=== PATIENT | male | born 1990 | race African-American/Black ===

== ENCOUNTER 2016-10-07 07:13 | Emergency (ER) | payer OTHER ==
[~2016-10-07] VITALS: Ht 172.7 cm; Wt 69.9 kg
[~2016-10-07 07:13] MED LIST: CIPR500T94 PO; HYDR-79 PO
[2016-10-07 07:17] VITALS: BP 132/80
[2016-10-07] MEDS ORDERED: HYDR-971 PO (07:37)
[2016-10-07] MEDS ORDERED: PENI250T85 PO (07:37)
--- NOTE | 2016-10-07 07:37 | PHYS DOC ---
Past Medical History Past Medical History: No Pertinent History Past Surgical History: No Surgical History Alcohol Use: None Drug Use: None Adult General Chief Complaint Chief Complaint: DENTAL PROBLEM HPI HPI Patient is a 26 year old male complaining of pain in the right upper molar, he thinks it's his wisdom tooth. It started 2 days ago. It wasn't bothering him at all before then. He states the pain is "20" and has been keeping him up for 2 nights. It's killing him. He's never had a toothache like this before. He did have his wisdom teeth pulled on the left at the oral surgery here at [place]. No known allergies. Review of Systems Review of Systems Constitutional: Denies fever HENT: Denies nasal congestion or sore throat [] Allergies Allergies Allergies Coded Allergies Type Severity Reaction Last Updated Verified No Known Drug Allergies 12/04/14 No Physical Exam Physical Exam Constitutional: Well developed, well nourished, no acute distress, non-toxic appearance. Alert, mentating normally, no dyspnea, swallowing his secretions normally. HENT: Normocephalic, atraumatic, bilateral external ears normal, oropharynx moist, tongue normal. Right upper third molar is mostly erupted and appears to have a large cavity and possibly a fracture. There is no surrounding significant gingival infection, no pus drainage, no periapical abscess. The palate is not involved. Oropharynx is clear Eyes: conjunctiva normal, no discharge. [] Neck: Normal range of motion, no stridor. [] Neurologic: Alert and oriented X 3, normal motor function, normal sensory function, no focal deficits noted. [] Current Patient Data Vital Signs Vital Signs Date Time Temp Pulse Resp B/P (MAP) Pulse Ox O2 Delivery O2 Flow Rate FiO2 10/07/16 07:17 98.3 66 16 100 Room Air 98.3 EKG EKG [] Radiology/Procedures Radiology/Procedures [] Course & Med Decision Making Course & Med Decision Making Pertinent Labs and Imaging studies reviewed. (See chart for details) I emphasized the importance of dental/oral surgery follow-up immediately tomorrow. See instructions for plan. [] Dragon Disclaimer Dragon Disclaimer This electronic medical record was generated, in whole or in part, using a voice recognition dictation system. Departure Departure Impression: Primary Impression: Pain due to dental caries Disposition: HOME, SELF-CARE Condition: STABLE Referrals: RAJAN HARDY DDS ARSALAN CRISOSTOMO Jr DDS Patient Instructions: Dental Caries Additional Instructions: As we discussed, the penicillin and pain pills will help a little bit, but it's important that you see a oral surgeon to get this tooth taken care of. Call tomorrow morning. Hydrocodone is an opiate and can be addictive, it is strong. No driving while taking it. It will be sedating and constipating. Scripts Hydrocodone/Apap 5-325 (NORCO 5-325 TABLET) 1 Each Tablet 1-2 TAB PO Q4-6HRS for dental pain, #10 TAB Prov: CATALINO JOHN MD 10/07/16 Penicillin V Potassium (PENICILLIN V POTASSIUM) 250 Mg Tablet 250 MG PO QID for dental pain for 7 Days, #28 TAB 0 Refills Prov: CATALINO JOHN MD 10/07/16 CATALINO JOHN MD Oct 07, 2016 07:37
== END 2016-10-07 07:47 | disposition home or self-care (01) ==
LOC: ER 07:13
DX: K02.9 Dental caries, unspecified (principal)
CPT/HCPCS: 99283

== ENCOUNTER 2018-09-28 20:37 | Emergency (ER) | payer OTHER ==
[~2018-09-28] VITALS: Ht 172.7 cm; Wt 83.9 kg
[~2018-09-28 20:37] MED LIST changes: +HYDR-3164 PO; -HYDR-79 PO; +HYDROCODONE-IB1 EAC3 PO; +PENI250T85 PO
[2018-09-28 20:57] LABS: BASO # 0.1 x10^3/uL (0.0-0.2); BASO % 1 % (0-3); EOS # 0.1 x10^3/uL (0.0-0.7); EOS % 2 % (0-3); HEMATOCRIT 49.5 % (39.0-53.0); LYMPH # 2.8 x10^3/uL (1.0-4.8); LYMPH % 35 % (24-48); MEAN CORPUSCULAR HEMOGLOBIN 29 pg (25-35); MEAN CORPUSCULAR HGB CONC 34 g/dL (31-37); MEAN CORPUSCULAR VOLUME 84 fL (79-100); MONO # 0.7 x10^3/uL (0.0-1.1); MONO % 9 % (0-9); NEUT # 4.3 x10^3/uL (1.8-7.7); NEUT % 53 % (31-73); PLATELET COUNT 248 x10^3/uL (140-400); RED BLOOD COUNT 5.88 x10^6/uL (4.30-5.70); RED CELL DISTRIBUTION WIDTH 14.1 % (11.5-14.5)
[2018-09-28 21:07] LABS: CALCIUM 9.8 mg/dL (8.5-10.1); CREATININE 1.5 mg/dL (0.7-1.3); GFR 67.4; POTASSIUM 3.3 mmol/L (3.5-5.1)
[2018-09-28] MEDS ORDERED: KETOROLAC 15 MG/ML VIAL. IV ONE (21:15)
[2018-09-28] MEDS ORDERED: IV NORMAL SALINE 1000ML BAG 1,000 ML IV ONE ×2 (21:15→22:00)
[2018-09-28 21:18] LABS: BILIRUBIN,URINE NEGATIVE (NEG); CLARITY,URINE CLEAR; COLOR,URINE YELLOW; NITRITE,URINE NEGATIVE (NEG); PROTEIN,URINE NEGATIVE (NEG-TRACE); UROBILINOGEN,URINE 0.2 mg/dL (0.2 mg/dL)
[2018-09-28 21:22] LABS: BACTERIA,URINE 0 /HPF (0-FEW); RBC,URINE OCC /HPF (0-2); WBC,URINE OCC /HPF (0-4)
[2018-09-28 21:23] LABS: ALBUMIN 4.5 g/dL (3.4-5.0); ALBUMIN/GLOBULIN RATIO 1.1 (1.0-1.7); TOTAL BILIRUBIN 0.7 mg/dL (0.2-1.0); TOTAL PROTEIN 8.5 g/dL (6.4-8.2)
[2018-09-28 21:24] LABS: AMPHETAMINE/METHAMPHETAMINE NEG (NEG); BARBITURATES NEG (NEG); BENZODIAZEPINES NEG (NEG); CANNABINOIDS POS (NEG); COCAINE NEG (NEG); METHADONE NEG (NEG); OPIATES NEG (NEG); PHENCYCLIDINE NEG (NEG)
[2018-09-28 23:05] LABS: CALCIUM 8.6 mg/dL (8.5-10.1); CREATININE 1.4 mg/dL (0.7-1.3); POTASSIUM 3.6 mmol/L (3.5-5.1)
[2018-09-28 23:41] VITALS: BP 109/57
--- NOTE | 2018-09-29 01:08 | PHYS DOC ---
Past Medical History Past Medical History: No Pertinent History Past Surgical History: No Surgical History Alcohol Use: Occasionally Drug Use: Marijuana Adult General Chief Complaint Chief Complaint: CHEST PAIN HPI HPI Patient is a 28 year old M P/W CC OF BODY ACHES. WAS WORKING IN A [employer] A COUPLE DAYS AGO. HAVING RIGHT SIDE CHEST DISCOMFORT, ALSO FEELING BODY ACHES THROUGHOUT INCLUDING RIGHT [place] RIGHT LOWER BACK. JUST FEELING WEAK HAS BEEN DRINKING GATROADE BUT NOT HELPING VERY MUCH. Review of Systems Review of Systems Constitutional: Denies fever or chills [] Eyes: Denies change in visual acuity, redness, or eye pain [] HENT: Denies nasal congestion or sore throat [] Musculoskeletal: Denies back pain or joint pain [] Integument: Denies rash or skin lesions [] Neurologic: Denies headache, focal weakness or sensory changes [] Endocrine: Denies polyuria or polydipsia [] All other systems were reviewed and found to be within normal limits, except as documented in this note. Current Medications Current Medications Current Medications Medications (Trade) Dose Ordered Sig/Cami Start Time Stop Time Status Last Admin Dose Admin Ketorolac Tromethamine (Toradol 15mg Vial) 15 mg 1X ONCE 09/28/18 21:15 09/28/18 21:16 DC 09/28/18 21:07 15 MG Sodium Chloride 1,000 ml @ 1,000 mls/hr 1X ONCE 09/28/18 22:00 09/28/18 22:59 DC 09/28/18 21:51 1,000 MLS/HR Allergies Allergies Allergies Coded Allergies Type Severity Reaction Last Updated Verified No Known Drug Allergies 12/04/14 No Physical Exam Physical Exam Constitutional: Well developed, well nourished, no acute distress, non-toxic appearance. [] HENT: Normocephalic, atraumatic, bilateral external ears normal, oropharynx moist, no oral exudates, nose normal. [] Eyes: PERRLA, EOMI, conjunctiva normal, no discharge. [] Neck: Normal range of motion, no tenderness, supple, no stridor. [] Cardiovascular:Heart rate regular rhythm, no murmur [] Lungs & Thorax: Bilateral breath sounds clear to auscultation [] REPRODUCIBLE RIGHT CHEST WALL AND RIGHT POSTERIOR LOWER BACK PARASPINOUS TTP. Abdomen: Bowel sounds normal, soft, no tenderness, no masses, no pulsatile masses. [] Skin: Warm, dry, no erythema, no rash. [] Back: No tenderness, no CVA tenderness. [] Extremities: No tenderness, no cyanosis, no clubbing, ROM intact, no edema. [] Neurologic: Alert and oriented X 3, normal motor function, normal sensory function, no focal deficits noted. [] Psychologic: Affect normal, judgement normal, mood normal. [] Current Patient Data Vital Signs Vital Signs Date Time Temp Pulse Resp B/P (MAP) Pulse Ox O2 Delivery O2 Flow Rate FiO2 09/28/18 23:41 98.5 61 16 109/57 (74) 100 Room Air 98.5 Lab Values Laboratory Tests Test 09/28/18 20:50 09/28/18 21:10 09/28/18 22:48 White Blood Count 8.0 x10^3/uL (4.0-11.0) Red Blood Count 5.88 x10^6/uL (4.30-5.70) H Hemoglobin 17.0 g/dL (13.0-17.5) Hematocrit 49.5 % (39.0-53.0) Mean Corpuscular Volume 84 fL (79-100) Mean Corpuscular Hemoglobin 29 pg (25-35) Mean Corpuscular Hemoglobin Concent 34 g/dL (31-37) Red Cell Distribution Width 14.1 % (11.5-14.5) Platelet Count 248 x10^3/uL (140-400) Neutrophils (%) (Auto) 53 % (31-73) Lymphocytes (%) (Auto) 35 % (24-48) Monocytes (%) (Auto) 9 % (0-9) Eosinophils (%) (Auto) 2 % (0-3) Basophils (%) (Auto) 1 % (0-3) Neutrophils # (Auto) 4.3 x10^3/uL (1.8-7.7) Lymphocytes # (Auto) 2.8 x10^3/uL (1.0-4.8) Monocytes # (Auto) 0.7 x10^3/uL (0.0-1.1) Eosinophils # (Auto) 0.1 x10^3/uL (0.0-0.7) Basophils # (Auto) 0.1 x10^3/uL (0.0-0.2) Sodium Level 133 mmol/L (136-145) L 137 mmol/L (136-145) Potassium Level 3.3 mmol/L (3.5-5.1) L 3.6 mmol/L (3.5-5.1) Chloride Level 96 mmol/L (98-107) L 100 mmol/L (98-107) Carbon Dioxide Level 25 mmol/L (21-32) 28 mmol/L (21-32) Anion Gap 12 (6-14) 9 (6-14) Blood Urea Nitrogen 30 mg/dL (8-26) H 28 mg/dL (8-26) H Creatinine 1.5 mg/dL (0.7-1.3) H 1.4 mg/dL (0.7-1.3) H Estimated GFR (Cockcroft-Gault) 67.4 73.0 BUN/Creatinine Ratio 20 (6-20) Glucose Level 128 mg/dL (70-99) H 74 mg/dL (70-99) Calcium Level 9.8 mg/dL (8.5-10.1) 8.6 mg/dL (8.5-10.1) Total Bilirubin 0.7 mg/dL (0.2-1.0) Aspartate Amino Transferase (AST) 120 U/L (15-37) H Alanine Aminotransferase (ALT) 70 U/L (16-63) H Alkaline Phosphatase 107 U/L (46-116) Creatine Kinase 4597 U/L (39-308) H 3842 U/L (39-308) H Total Protein 8.5 g/dL (6.4-8.2) H Albumin 4.5 g/dL (3.4-5.0) Albumin/Globulin Ratio 1.1 (1.0-1.7) Lipase 123 U/L (73-393) Urine Collection Type Unknown Urine Color Yellow Urine Clarity Clear Urine pH 6.0 Urine Specific [place] 1.025 Urine Protein Negative mg/dL (NEG-TRACE) Urine Glucose (UA) Negative mg/dL (NEG) Urine Ketones (Stick) Negative mg/dL (NEG) Urine Blood Negative (NEG) Urine Nitrite Negative (NEG) Urine Bilirubin Negative (NEG) Urine Urobilinogen Dipstick 0.2 mg/dL (0.2 mg/dL) Urine Leukocyte Esterase Negative (NEG) Urine RBC Occ /HPF (0-2) Urine WBC Occ /HPF (0-4) Urine Bacteria 0 /HPF (0-FEW) Urine Mucus Mod /LPF Urine Opiates Screen Neg (NEG) Urine Methadone Screen Neg (NEG) Urine Barbiturates Neg (NEG) Urine Phencyclidine Screen Neg (NEG) Urine Amphetamine/Methamphetamine Neg (NEG) Urine Benzodiazepines Screen Neg (NEG) Urine Cocaine Screen Neg (NEG) Urine Cannabinoids Screen Pos (NEG) Urine Ethyl Alcohol Neg (NEG) Laboratory Tests 09/28/18 20:50 Laboratory Tests 09/28/18 20:50 09/28/18 22:48 EKG EKG []EKG NSR RATE 71 NO ACUTE ISCHEMIC CHANGES NOTED. Radiology/Procedures Radiology/Procedures [] Impressions: CXR NEGATIVE. Course & Med Decision Making Course & Med Decision Making Pertinent Labs and Imaging studies reviewed. 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 [employer] INITIALLY 4900 CR 1.5 GAVE TWO LITERS HE FELT A LOT BETTER URINATING WELL REPEAT <4000 DOWNTRENDING. I THINK HE IS OKAY TO GO HOME HE IS TAKING GOOD PO . Dragon Disclaimer Dragon Disclaimer This electronic medical record was generated, in whole or in part, using a voice recognition dictation system. Departure Departure Impression: Primary Impression: Rhabdomyolysis Disposition: HOME, SELF-CARE Condition: STABLE Patient Instructions: Mckennaolysis SARMAD VERA MD Sep 29, 2018 01:08
--- NOTE | 2018-09-29 06:28 | RAD ---
PORTABLE CHEST 1V Clinical Indication: Shortness of breath Comparison: None. Findings: The cardiomediastinal silhouette is normal. Lungs are clear. There is no pneumothorax. No pleural effusion is appreciated. No acute bone abnormality. IMPRESSION: No acute cardiopulmonary process. Electronically signed by: Tyrell Grijalva MD (09/29/2018 6:25 AM) [facility]
--- NOTE | 2018-09-29 07:24 | EKG ---
[facility] [address] [place] [address] Test Date: 2018-09-28 Test Time: 20:42:07 Pat Name: KRIS MERRITT Department: Room: Gender: M Leadership Development Instructor: : 1990 Requested By: SARMAD VERA Order Number: [id number] Reading MD: Measurements Intervals [place] Rate: 71 P: 42 TX: 156 QRS: 81 QRSD: 78 T: 56 QT: 346 QTc: 380 Interpretive Statements SINUS RHYTHM OTHERWISE NORMAL ECG RI6.01 Unconfirmed report No previous ECG available for comparison
== END 2018-09-28 23:41 | disposition home or self-care (01) ==
LOC: ER 20:37
DX: M62.82 Rhabdomyolysis (principal); R07.89 Other chest pain; M54.5 Low back pain
CPT/HCPCS: 36415; 71045; 80048; 80053; 80307; 81001; 82550; 83690; 85025; 93005; 96374; 99285; J1885; J7030